=== PATIENT | female | born 1935 | race Caucasian/White ===

== ENCOUNTER → 2017-12-13 | Outpatient (CLI) | payer MEDICARE ==
[~2017-12-13] MED LIST: DENOSUMAB 60 MG/ML 1 ML SYRINGE SQ ONE
[2017-12-13 12:31] VITALS: BP 165/79; PULSE 68; RESP 18; TEMP 97.6
== END | disposition home or self-care (01) ==
LOC: PROCWHC3 12:07
PROVIDERS: ATTEND Family Medicine
DX: M81.0 Age-related osteoporosis without current pathological fracture (principal)
CPT/HCPCS: 96372; J0897

== ENCOUNTER 2018-01-15 13:41 | Emergency (ER) | payer MEDICARE ==
[2018-01-15] MEDS ORDERED: SODIUM CHLORIDE 0.9% 1,000 ML IV STA (14:30)
[2018-01-15] MEDS ORDERED: ONDANSETRON 4 MG/2 ML VIAL IVP STA (14:30)
--- NOTE | 2018-01-15 14:39 | ED ---
General Adult HPI - General Chief complaint: Nausea/Vomiting/Diarrhea Stated complaint: N/V Time Seen by Provider: 01/15/18 14:15 Source: EMS, RN notes reviewed Mode of arrival: EMS Limitations: no limitations - History of Present Illness Initial comments: Patient 82-year-old male presented to the emergency room today with multiple complaints. Patient does admit that she's had some left-sided hip pain over the last week to the last month. She states that she typically does not have to use a walker or cane. She states that when she tries to stand and bear weight and walk she has pain in the left hip. Denies any injury or trauma. Patient also admits that over the last 3 days she's had nausea vomiting. She states she has not been eating or drinking much as she is too afraid because she is worried that she may vomit. Patient denies any pain in the abdomen. Denies any chest pain or shortness breath. Patient denies any other complaints. Patient denies any back pain, diarrhea, numbness tingling, headache , visual changes. - Related Data Previous Rx's Medication Instructions Recorded Ondansetron Odt [Zofran ODT] 4 mg PO Q8HR PRN #10 tab 01/15/18 Allergies Allergy/AdvReac Type Severity Reaction Status Date / Time No Known Allergies Allergy Verified 01/15/18 13:49 Review of Systems ROS Statement: Those systems with pertinent positive or pertinent negative responses have been documented in the HPI. ROS Other: All systems not noted in ROS Statement are negative. Past Medical History Past Medical History: No Reported History History of Any Multi-Drug Resistant Organisms: None Reported Past Surgical History: Adenoidectomy, Appendectomy, Tonsillectomy Past Psychological History: No Psychological Hx Reported Smoking Status: Former smoker Past Alcohol Use History: Occasional Past Drug Use History: None Reported General Exam - General Exam Comments Initial Comments: General: The patient is awake and alert, in no distress, and does not appear acutely ill. Eye: Pupils are equal, round and reactive to light. Extra-ocular movements are intact. No nystagmus. There is normal conjunctiva bilaterally. No signs of icterus. Ears, nose, mouth and throat: There are moist mucous membranes and no oral lesions. Neck: The neck is supple, there is no tenderness or JVD. Cardiovascular: There is a regular rate and rhythm. No murmur, rub or gallop is appreciated. Respiratory: Lungs are clear to auscultation, respirations are non-labored, breath sounds are equal. No wheezes, stridor, rales, or rhonchi. Gastrointestinal: Soft, non-distended, non-tender abdomen without masses or organomegaly noted. There is no rebound or guarding present. No CVA tenderness. Musculoskeletal: Normal ROM. Patient does have some mild tenderness with a logroll maneuver on the left with mild tenderness to the internal aspect. Sensation intact. Strength 5/5. Pulses equal bilaterally 2+. Neurological: A&O x 3. CN II-XII intact, There are no obvious motor or sensory deficits. Coordination appears grossly intact. Speech is normal. Skin: Skin is warm and dry and no rashes or lesions are noted. Psychiatric: Cooperative, appropriate mood & affect, normal judgment. Limitations: no limitations Course Vital Signs 01/15/18 01/15/18 01/15/18 13:44 13:48 13:50 Temperature 99.0 F Pulse Rate 86 Respiratory 18 Rate Blood Pressure 162/83 162/83 O2 Sat by Pulse 93 L 92 L 94 L Oximetry 01/15/18 01/15/18 01/15/18 14:00 14:10 14:20 Temperature Pulse Rate Respiratory Rate Blood Pressure 162/83 160/71 160/71 O2 Sat by Pulse 90 L 95 95 Oximetry 01/15/18 01/15/18 01/15/18 14:30 14:40 14:50 Temperature Pulse Rate 84 Respiratory 18 Rate Blood Pressure 160/71 150/68 150/68 O2 Sat by Pulse 94 L 95 Oximetry 01/15/18 15:00 Temperature Pulse Rate 79 Respiratory 12 Rate Blood Pressure 150/68 O2 Sat by Pulse 92 L Oximetry EKG Findings - EKG Comments: EKG Findings:: EKG performed at 1447: Shows normal sinus rhythm at 83 bpm. GA 160. QRS 72. QT/QTC 378/444. No acute ST changes. Medical Decision Making - Medical Decision Making X-ray of the left hip and pelvis shows no acute fracture dislocation of the pelvis or hip. Moderate bilateral femoral acetabular arthropathy greater on the left than the right. Patient's labs been reviewed. White count 10.9. Abdomen soft on palpation. Urinalysis reviewed and shows contaminated specimen. Patient denies any symptoms of dysuria or increased voiding. Abdomen soft nontender. X-ray reviewed and shows no evidence for obstruction. Patient will be discharged home with nausea medication. She is advised follow- up family doctor she has appointment tomorrow. Patient is advised follow-up with orthopedics for her hip pain. Advised to return here to the emergency room if any symptoms increase worsen. - Lab Data Result diagrams: 01/15/18 13:53 01/15/18 13:53 Lab Results 01/15/18 01/15/18 01/15/18 Range/Units 13:53 13:53 13:53 WBC 10.9 H (3.8-10.6) k/uL RBC 4.31 (3.80-5.40) m/uL Hgb 13.7 (11.4-16.0) gm/dL Hct 40.1 (34.0-46.0) % MCV 93.2 (80.0-100.0) fL MCH 31.8 (25.0-35.0) pg MCHC 34.1 (31.0-37.0) g/dL RDW 13.4 (11.5-15.5) % Plt Count 248 (150-450) k/uL Neutrophils % 90 % Lymphocytes % 4 % Monocytes % 3 % Eosinophils % 2 % Basophils % 0 % Neutrophils # 9.8 H (1.3-7.7) k/uL Lymphocytes # 0.4 L (1.0-4.8) k/uL Monocytes # 0.3 (0-1.0) k/uL Eosinophils # 0.3 (0-0.7) k/uL Basophils # 0.0 (0-0.2) k/uL PT (9.0-12.0) sec INR (<1.2) APTT (22.0-30.0) sec Sodium 138 (137-145) mmol/L Potassium 4.0 (3.5-5.1) mmol/L Chloride 107 (98-107) mmol/L Carbon Dioxide 22 (22-30) mmol/L Anion Gap 9 mmol/L BUN 16 (7-17) mg/dL Creatinine 0.52 (0.52-1.04) mg/dL Est GFR (CKD-EPI)AfAm >90 (>60 ml/min/1.73 sqM) Est GFR (CKD-EPI)NonAf 89 (>60 ml/min/1.73 sqM) Glucose 134 H (74-99) mg/dL Calcium 8.2 L (8.4-10.2) mg/dL Total Bilirubin 0.4 (0.2-1.3) mg/dL AST 27 (14-36) U/L ALT 34 (9-52) U/L Alkaline Phosphatase 40 (38-126) U/L Total Creatine Kinase 31 (30-135) U/L CK-MB (CK-2) <0.2 (0.0-2.4) ng/mL CK-MB (CK-2) Rel Index Troponin I <0.012 (0.000-0.034) ng/mL Total Protein 6.2 L (6.3-8.2) g/dL Albumin 3.5 (3.5-5.0) g/dL Amylase 47 (30-110) U/L Lipase 71 (23-300) U/L Urine Color Urine Appearance (Clear) Urine pH (5.0-8.0) Ur Specific [place] (1.001-1.035) Urine Protein (Negative) Urine Glucose (UA) (Negative) Urine Ketones (Negative) Urine Blood (Negative) Urine Nitrite (Negative) Urine Bilirubin (Negative) Urine Urobilinogen (<2.0) mg/dL Ur Leukocyte Esterase (Negative) Urine RBC (0-5) /hpf Urine WBC (0-5) /hpf Ur Squamous Epith Cells (0-4) /hpf Urine Bacteria (None) /hpf Urine Mucus (None) /hpf 01/15/18 01/15/18 Range/Units 13:53 15:30 WBC (3.8-10.6) k/uL RBC (3.80-5.40) m/uL Hgb (11.4-16.0) gm/dL Hct (34.0-46.0) % MCV (80.0-100.0) fL MCH (25.0-35.0) pg MCHC (31.0-37.0) g/dL RDW (11.5-15.5) % Plt Count (150-450) k/uL Neutrophils % % Lymphocytes % % Monocytes % % Eosinophils % % Basophils % % Neutrophils # (1.3-7.7) k/uL Lymphocytes # (1.0-4.8) k/uL Monocytes # (0-1.0) k/uL Eosinophils # (0-0.7) k/uL Basophils # (0-0.2) k/uL PT 10.1 (9.0-12.0) sec INR 1.0 (<1.2) APTT 24.4 (22.0-30.0) sec Sodium (137-145) mmol/L Potassium (3.5-5.1) mmol/L Chloride (98-107) mmol/L Carbon Dioxide (22-30) mmol/L Anion Gap mmol/L BUN (7-17) mg/dL Creatinine (0.52-1.04) mg/dL Est GFR (CKD-EPI)AfAm (>60 ml/min/1.73 sqM) Est GFR (CKD-EPI)NonAf (>60 ml/min/1.73 sqM) Glucose (74-99) mg/dL Calcium (8.4-10.2) mg/dL Total Bilirubin (0.2-1.3) mg/dL AST (14-36) U/L ALT (9-52) U/L Alkaline Phosphatase (38-126) U/L Total Creatine Kinase (30-135) U/L CK-MB (CK-2) (0.0-2.4) ng/mL CK-MB (CK-2) Rel Index Troponin I (0.000-0.034) ng/mL Total Protein (6.3-8.2) g/dL Albumin (3.5-5.0) g/dL Amylase (30-110) U/L Lipase (23-300) U/L Urine Color Yellow Urine Appearance Turbid H (Clear) Urine pH 6.0 (5.0-8.0) Ur Specific [place] 1.019 (1.001-1.035) Urine Protein 1+ H (Negative) Urine Glucose (UA) Negative (Negative) Urine Ketones 1+ H (Negative) Urine Blood Trace H (Negative) Urine Nitrite Negative (Negative) Urine Bilirubin Negative (Negative) Urine Urobilinogen 3.0 (<2.0) mg/dL Ur Leukocyte Esterase Moderate H (Negative) Urine RBC 11 H (0-5) /hpf Urine WBC 16 H (0-5) /hpf Ur Squamous Epith Cells 50 H (0-4) /hpf Urine Bacteria Few H (None) /hpf Urine Mucus Rare H (None) /hpf Disposition Clinical Impression: Nausea & vomiting, Hip pain Disposition: HOME SELF-CARE Condition: Good Instructions: Acute Nausea and Vomiting (ED) Additional Instructions: Please follow-up the orthopedic doctor in family doctor as discussed. Please continue to emergency room sent symptoms increase or worsen or for any other concerns. Prescriptions: Ondansetron Odt [Zofran ODT] 4 mg PO Q8HR PRN #10 tab PRN Reason: Nausea Is patient prescribed a controlled substance at d/c from ED?: No Referrals: Lonnie Wilburn MD [Primary Care Provider] - 1-2 days Time of Disposition: 16:15
[2018-01-15 14:48] LABS: Basophils % (A) 0 %; Eosinophils # (A) 0.3 k/uL (0-0.7); Eosinophils % (A) 2 %; HCT 40.1 % (34.0-46.0); HGB 13.7 gm/dL (11.4-16.0); Lymphocytes # (A) 0.4 k/uL (1.0-4.8); Lymphocytes % (A) 4 %; MCH 31.8 pg (25.0-35.0); MCHC 34.1 g/dL (31.0-37.0); MCV 93.2 fL (80.0-100.0); Mean Platelet Volume 6.8; Monocytes # (A) 0.3 k/uL (0-1.0); Monocytes % (A) 3 %; Neutrophils # (A) 9.8 k/uL (1.3-7.7); Neutrophils % (A) 90 %; Platelet Count 248 k/uL (150-450); RBC 4.31 m/uL (3.80-5.40); RDW 13.4 % (11.5-15.5); WBC 10.9 k/uL (3.8-10.6)
[2018-01-15 14:58] LABS: Partial Thromboplastin Time 24.4 sec (22.0-30.0); Prothrombin Time 10.1 sec (9.0-12.0)
[2018-01-15 15:03] LABS: ALT 34 U/L (9-52); AST 27 U/L (14-36); Albumin 3.5 g/dL (3.5-5.0); Alkaline Phosphatase 40 U/L (38-126); Amylase 47 U/L (30-110); Anion Gap 9 mmol/L; Blood Urea Nitrogen 16 mg/dL (7-17); Calcium 8.2 mg/dL (8.4-10.2); Carbon Dioxide 22 mmol/L (22-30); Chloride 107 mmol/L (98-107); Glucose 134 mg/dL (74-99); Lipase 71 U/L (23-300); Sodium 138 mmol/L (137-145); Total Bilirubin 0.4 mg/dL (0.2-1.3); Total Protein 6.2 g/dL (6.3-8.2)
[2018-01-15 15:08] LABS: Creatine Kinase 31 U/L (30-135)
[2018-01-15 15:21] LABS: Creatine Kinase MB <0.2 ng/mL (0.0-2.4); Troponin I <0.012 ng/mL (0.000-0.034)
--- NOTE | 2018-01-15 15:38 | XR ---
EXAMINATION TYPE: XR Hip LT and AP Pelvis DATE OF EXAM: 01/15/2018 COMPARISON: NONE HISTORY: Chronic left hip pain. Patient denies 3 TECHNIQUE: A single AP view of the pelvis is obtained. Two views of the left hip are obtained. FINDINGS: There is no acute fracture/dislocation evident in the pelvis. The hip and sacroiliac join ts demonstrate moderate femoral acetabular arthropathy demonstrated as acetabular roof sclerosis, sma ll marginal osteophytes and joint space narrowing. Left degenerative changes are slightly greater joni n right. The overlying soft tissue appears unremarkable. Two views of left hip show no acute fracture or dislocation. No focal lytic or sclerotic lesion seen in the proximal left femur. The overlying soft tissue is unremarkable. IMPRESSION: There is no acute fracture or dislocation in the pelvis or left hip. Moderate bilateral femoral acetabular arthropathy, left greater than right.
--- NOTE | 2018-01-15 15:39 | XR ---
EXAMINATION TYPE: XR KUB DATE OF EXAM: 01/15/2018 3:21 PM CLINICAL HISTORY: Abdominal pain with nausea and vomiting. TECHNIQUE: Single supine KUB image of the abdomen is obtained. COMPARISON: None. FINDINGS: Shana loops of small bowel are seen centralized within the abdomen. Scattered gas is seen in nondilated small bowel loops. Gas and fecal material is seen in nondilated colon. There is no visc eromegaly, pneumoperitoneum, or abnormal calcification appreciated. The lung bases demonstrate left b asilar atelectasis. Atherosclerosis of the abdominal aorta and slight levoscoliotic curvature of the lumbar spine are noted. IMPRESSION: Few nondilated loops of small bowel are clustered within the mid abdomen. No dilated anmol l to suggest obstruction. Small bowel ileus is suspected. Moderate amount retained stool within the d escending colon.
[2018-01-15 15:52] LABS: Appearance,Urine Turbid (Clear); Bacteria,Urine Few /hpf; Bilirubin,Urine Negative (Negative); Blood,Urine Trace (Negative); Color,Urine Yellow; Glucose,Urine (UA) Negative (Negative); Ketones,Urine 1+ (Negative); Leukocyte Esterase,Urine Moderate (Negative); Mucus,Urine Rare /hpf; Nitrite,Urine Negative (Negative); Protein,Urine 1+ (Negative); RBC,Urine 11 /hpf (0-5); Specific Gravity,Urine 1.019 (1.001-1.035); Squamous Epithelial Cell,Urine 50 /hpf (0-4)
[2018-01-15 16:40] VITALS: BP 134/87; PULSE 87; RESP 18; TEMP 98.7
== END 2018-01-15 16:40 | disposition home or self-care (01) ==
LOC: EC 13:41
DX: M16.0 Bilateral primary osteoarthritis of hip (principal); R11.2 Nausea with vomiting, unspecified; R19.7 Diarrhea, unspecified; Z87.891 Personal history of nicotine dependence
CPT/HCPCS: 36415; 93005; 80053; 82150; 82550; 82553; 83690; 84484; 85025; 85610; 85730; 81001; 87086; 73502; 74018; 99285; 96374; 96361 ×2; J2405

== ENCOUNTER → 2018-06-14 | Outpatient (CLI) | payer MEDICARE ==
[2018-06-14 10:58] VITALS: BP 134/62; PULSE 73; RESP 16; TEMP 97.5
== END ==
LOC: PROCWHC3 10:33
PROVIDERS: ATTEND Family Medicine
DX: M81.0 Age-related osteoporosis without current pathological fracture (principal)
CPT/HCPCS: 96372; J0897

== ENCOUNTER → 2018-09-19 | Outpatient (CLI) | payer MEDICARE ==
--- NOTE | 2018-09-19 13:33 | CT ---
EXAMINATION TYPE: CT sinus wo con DATE OF EXAM: 09/19/2018 COMPARISON: MR internal auditory canals 08/15/2018 HISTORY: Chronic sinusitis, J 32.9, BILATERAL HEARING LOSS CT DLP: 649.2 mGycm. Automated Exposure Control for Dose Reduction was Utilized. TECHNIQUE: CT scan of the sinuses is performed without contrast, axial images are obtained, coronal r eformatted images are also reviewed. FINDINGS: There is inflammatory change involving the sphenoid sinus on the left as noted on prior MRI , minimal inflammatory change in the right sphenoid sinus. Left sphenoid sinus shows some associated higher attenuation within the inflammatory change. The paranasal sinuses including the frontal, ethm oid, and maxillary sinuses bilaterally are well-aerated without abnormal opacification. The ostiomea annie complex is patent bilaterally on the coronal images. Visualized portion of mastoid air cells show no abnormal opacification. The globes are intact bilate rally. IMPRESSION: Sinus disease in the sphenoid sinus associated with calcification
== END | disposition home or self-care (01) ==
LOC: RADCTMAIN 12:12
PROVIDERS: ATTEND Otolaryngology
DX: J32.3 Chronic sphenoidal sinusitis (principal)
CPT/HCPCS: 70486

== ENCOUNTER 2020-05-14 08:15 | Observation (INO) | payer MEDICARE ==
[2020-05-14] MEDS ORDERED: MECLIZINE 25 MG TAB PO STA (08:32)
[2020-05-14] MEDS ORDERED: ONDANSETRON 4 MG/2 ML VIAL IVP STA (08:32)
[2020-05-14 08:58] LABS: Basophils % (A) 0 %; Eosinophils # (A) 0.1 k/uL (0-0.7); Eosinophils % (A) 1 %; HCT 43.8 % (34.0-46.0); HGB 14.6 gm/dL (11.4-16.0); Lymphocytes # (A) 1.6 k/uL (1.0-4.8); Lymphocytes % (A) 16 %; MCH 31.4 pg (25.0-35.0); MCHC 33.3 g/dL (31.0-37.0); MCV 94.4 fL (80.0-100.0); Mean Platelet Volume 6.9; Monocytes # (A) 0.5 k/uL (0-1.0); Monocytes % (A) 4 %; Neutrophils # (A) 8.1 k/uL (1.3-7.7); Neutrophils % (A) 78 %; Platelet Count 320 k/uL (150-450); RBC 4.65 m/uL (3.80-5.40); RDW 13.3 % (11.5-15.5); WBC 10.4 k/uL (3.8-10.6)
--- NOTE | 2020-05-14 09:06 | ED ---
General Adult HPI - General Chief complaint: Nausea/Vomiting/Diarrhea Stated complaint: dizziness/nausea Time Seen by Provider: 05/14/20 08:25 Source: patient, EMS, RN notes reviewed, old records reviewed Mode of arrival: EMS Limitations: no limitations - History of Present Illness Initial comments: This is an 84-year-old female who states she got before clots morning with the bathroom and when she went back in bed and lay down and everything became really spinning and she became extremely nauseous. Patient states the nausea continues and anytime she moves the spinning is comes back. Patient denies headache. Patient denies any numbness weakness. Patient denies any chest pain palpitations difficulty breathing shortness of breath. Patient denies any history of similar. Patient states she's normally deaf but has not noticed any worsening in her hearing. Patient denies any tinnitus. Patient denies abdominal pain patient denies any - Related Data Home Medications Medication Instructions Recorded Confirmed Dorzolamide-Timol 2.23%/0.68% 1 drop BOTH EYES BID 05/14/20 05/14/20 [Cosopt] Allergies Allergy/AdvReac Type Severity Reaction Status Date / Time Sulfa (Sulfonamide Allergy Unknown Verified 05/14/20 10:25 Antibiotics) Review of Systems ROS Statement: Those systems with pertinent positive or pertinent negative responses have been documented in the HPI. ROS Other: All systems not noted in ROS Statement are negative. Past Medical History Past Medical History: Hyperlipidemia Additional Past Medical History / Comment(s): GLAUCOMA. OSTEOPOROSIS. History of Any Multi-Drug Resistant Organisms: None Reported Past Surgical History: Adenoidectomy, Appendectomy, Tonsillectomy Past Psychological History: No Psychological Hx Reported Smoking Status: Never smoker Past Alcohol Use History: Occasional Past Drug Use History: None Reported - Past Family History Father Family Medical History: No Reported History Mother Family Medical History: Cancer Sister(s) Family Medical History: Asthma General Exam - General Exam Comments Initial Comments: GENERAL: Patient is well-developed and well-nourished. Patient is nontoxic and well- hydrated and is in mild distress. ENT: Neck is soft and supple. No significant lymphadenopathy is noted. Oropharynx is clear. Moist mucous membranes. Neck has full range of motion without eliciting any pain. EYES: The sclera were anicteric and conjunctiva were pink and moist. Extraocular movements were intact and pupils were equal round and reactive to light. Eyelids were unremarkable. PULMONARY: Unlabored respirations. Good breath sounds bilaterally. No audible rales rhonchi or wheezing was noted. CARDIOVASCULAR: There is a regular rate and rhythm without any murmurs gallops or rubs. ABDOMEN: Soft and nontender with normal bowel sounds. SKIN: Skin is clear with no lesions or rashes and otherwise unremarkable. NEUROLOGIC: Patient is alert and oriented x3. Cranial nerves II through XII are grossly intact. Motor and sensory are also intact. Normal speech, volume and content. Symmetrical smile. Finger to nose cerebellar testing is normal bilaterally MUSCULOSKELETAL: Normal extremities with adequate strength and full range of motion. No lower extremity swelling or edema. No calf tenderness. LYMPHATICS: No significant lymphadenopathy is noted PSYCHIATRIC: Normal psychiatric evaluation. Limitations: no limitations Course Vital Signs 05/14/20 08:23 Temperature 98.0 F Pulse Rate 64 Respiratory 18 Rate Blood Pressure 165/77 O2 Sat by Pulse 98 Oximetry Medical Decision Making - Medical Decision Making EKG shows normal sinus rhythm at 64 bpm [place] interval 162 QRS is 80 QT interval is 460 QTC is 474 patient has T-wave inversions in V1 and V2 and V3. These inversions were seen on her previous EKG. Computed tomography scan showed no acute abnormality. I went back in the room after patient received Valium and Antivert patient was unable to sit up in bed without becoming very dizzy and nauseated. Patient did not think she could go home alone because she lives alone. I spoke with Dr. Brumfield agreed to admit the patient admitted the patient I consult the neurology. - Lab Data Result diagrams: 05/14/20 08:46 05/14/20 08:46 Lab Results 05/14/20 05/14/20 05/14/20 Range/Units 08:46 08:46 08:46 WBC 10.4 (3.8-10.6) k/uL RBC 4.65 (3.80-5.40) m/uL Hgb 14.6 (11.4-16.0) gm/dL Hct 43.8 (34.0-46.0) % MCV 94.4 (80.0-100.0) fL MCH 31.4 (25.0-35.0) pg MCHC 33.3 (31.0-37.0) g/dL RDW 13.3 (11.5-15.5) % Plt Count 320 (150-450) k/uL MPV 6.9 Neutrophils % 78 % Lymphocytes % 16 % Monocytes % 4 % Eosinophils % 1 % Basophils % 0 % Neutrophils # 8.1 H (1.3-7.7) k/uL Lymphocytes # 1.6 (1.0-4.8) k/uL Monocytes # 0.5 (0-1.0) k/uL Eosinophils # 0.1 (0-0.7) k/uL Basophils # 0.0 (0-0.2) k/uL PT 9.8 (9.0-12.0) sec INR 0.9 (<1.2) APTT 22.0 (22.0-30.0) sec Sodium 137 (137-145) mmol/L Potassium 3.8 (3.5-5.1) mmol/L Chloride 107 (98-107) mmol/L Carbon Dioxide 23 (22-30) mmol/L Anion Gap 7 mmol/L BUN 14 (7-17) mg/dL Creatinine 0.57 (0.52-1.04) mg/dL Est GFR (CKD-EPI)AfAm >90 (>60 ml/min/1.73 sqM) Est GFR (CKD-EPI)NonAf 86 (>60 ml/min/1.73 sqM) Glucose 116 H (74-99) mg/dL Calcium 8.9 (8.4-10.2) mg/dL Magnesium 1.9 (1.6-2.3) mg/dL Total Bilirubin 0.7 (0.2-1.3) mg/dL AST 22 (14-36) U/L ALT 10 (4-34) U/L Alkaline Phosphatase 58 (38-126) U/L Troponin I (0.000-0.034) ng/mL Total Protein 6.3 (6.3-8.2) g/dL Albumin 3.6 (3.5-5.0) g/dL 05/14/20 Range/Units 08:46 WBC (3.8-10.6) k/uL RBC (3.80-5.40) m/uL Hgb (11.4-16.0) gm/dL Hct (34.0-46.0) % MCV (80.0-100.0) fL MCH (25.0-35.0) pg MCHC (31.0-37.0) g/dL RDW (11.5-15.5) % Plt Count (150-450) k/uL MPV Neutrophils % % Lymphocytes % % Monocytes % % Eosinophils % % Basophils % % Neutrophils # (1.3-7.7) k/uL Lymphocytes # (1.0-4.8) k/uL Monocytes # (0-1.0) k/uL Eosinophils # (0-0.7) k/uL Basophils # (0-0.2) k/uL PT (9.0-12.0) sec INR (<1.2) APTT (22.0-30.0) sec Sodium (137-145) mmol/L Potassium (3.5-5.1) mmol/L Chloride (98-107) mmol/L Carbon Dioxide (22-30) mmol/L Anion Gap mmol/L BUN (7-17) mg/dL Creatinine (0.52-1.04) mg/dL Est GFR (CKD-EPI)AfAm (>60 ml/min/1.73 sqM) Est GFR (CKD-EPI)NonAf (>60 ml/min/1.73 sqM) Glucose (74-99) mg/dL Calcium (8.4-10.2) mg/dL Magnesium (1.6-2.3) mg/dL Total Bilirubin (0.2-1.3) mg/dL AST (14-36) U/L ALT (4-34) U/L Alkaline Phosphatase (38-126) U/L Troponin I <0.012 (0.000-0.034) ng/mL Total Protein (6.3-8.2) g/dL Albumin (3.5-5.0) g/dL Disposition Clinical Impression: Vertigo Disposition: ADMITTED IP TO THIS HOSP Referrals: Renaldo Isabel MD [Primary Care Provider] - 1-2 days Time of Disposition: 12:06
[2020-05-14 09:10] LABS: ALT 10 U/L (4-34); AST 22 U/L (14-36); African American GFR (CKD) >90 (>60 ml/min/1.73 sqM); Albumin 3.6 g/dL (3.5-5.0); Alkaline Phosphatase 58 U/L (38-126); Anion Gap 7 mmol/L; Blood Urea Nitrogen 14 mg/dL (7-17); Calcium 8.9 mg/dL (8.4-10.2); Carbon Dioxide 23 mmol/L (22-30); Chloride 107 mmol/L (98-107); Glucose 116 mg/dL (74-99); Magnesium 1.9 mg/dL (1.6-2.3); Non-African American GFR(CKD) 86 (>60 ml/min/1.73 sqM); Potassium 3.8 mmol/L (3.5-5.1); Sodium 137 mmol/L (137-145); Total Bilirubin 0.7 mg/dL (0.2-1.3); Total Protein 6.3 g/dL (6.3-8.2)
[2020-05-14 09:25] LABS: INR 0.9 (<1.2); Prothrombin Time 9.8 sec (9.0-12.0)
--- NOTE | 2020-05-14 09:37 | CT ---
EXAMINATION TYPE: CT brain wo con DATE OF EXAM: 05/14/2020 COMPARISON: None HISTORY: vertigo CT DLP: 1145.[address] of the brain was performed. The ventricles, basal cisterns and sulci overlying the cerebral convexities demonstrate moderate enla rgement. Correlate for normal pressure hydrocephalus. Remote insult left frontal lobe and right poste rior parietal lobe. There is no evidence for intracranial hemorrhage or sulcal effacement. There is decreased attenuation about the periventricular white matter and deep white matter of both c erebral hemispheres, compatible with chronic small vessel ischemia. Differential diagnosis does inclu de demyelination. No mass effects are seen.No midline shift. Osseous calvarium is intact. Sphenoid sinusitis. If symptoms persist consider MRI. IMPRESSION: 1. Age related atrophic and chronic small vessel ischemic change without acute intracranial process s een at this time. 2. Correlate for normal pressure hydrocephalus.
[2020-05-14] MEDS ORDERED: DIAZEPAM 5 MG/ML 2 ML INJ IVP STA (10:08)
[2020-05-14] MEDS ORDERED: SODIUM CHLORIDE 0.9% 1,000 ML IV ONE (12:06)
[2020-05-14] MEDS ORDERED: MECLIZINE 25 MG TAB PO PRN (12:07)
[2020-05-14] MEDS ORDERED: ONDANSETRON 4 MG/2 ML VIAL IVP PRN (12:08)
[2020-05-14] MEDS: MECLIZINE 25 MG TAB PO SCH ×2 (16:37→21:31)
--- NOTE | 2020-05-14 17:28 | P.CNNES ---
History of Present Illness Consult date: 05/14/20 Requesting physician: Desmond Muñiz Reason for Consult: Vertigo History of Present Illness: Patient is a 84-year-old female came to the hospital this morning at 8:15 AM by ambulance for acute onset of vertigo. Patient states that she woke up at 4 AM to pass urine. She got up, went to the bathroom. She thinks when she came back and laid down, she felt dizzy. It was more like vertigo, with no nausea or vomiting. She managed to go back to sleep. She woke up again at 6 AM, and tried to get up and again felt vertigo. She was afraid to get out of bed, as she was concerned will fall. As she lives by herself, she called the EMS and was brought to the hospital. She denies any focal symptoms. Vital signs on arrival blood pressure 165/77, pulse rate 64, temperature 98.0. Blood test shows normal CBC, PT/PTT, Chem-20. Troponin negative, arreola virus negative. Patient underwent computed tomography scan of the head which revealed age-related atrophic and chronic small vessel ischemic changes without acute intracranial process seen at this time. Correlate for normal pressure hydrocephalus. EKG shows normal sinus rhythm. Patient has a previous computed tomography scan of the sinuses on 09/19/2018 which revealed sinus disease in the sphenoid sinus associated with calcification. Patient had a previous MRI of the brain as well on 08/15/2018, which revealed ventricular prominence may related to normal pressure hydrocephalus or age-related volume loss however no priors are available for comparison of stability in size of the ventriculomegaly. Apparently patient does not know anything about this previous MRI and possibility of NPH. Patient states that she smoked half pack per day for 20 years, quit 40 years ago. She drinks 1-2 cocktails of We[employer] for the last 50 years. Patient states that her son told her that she had an episode of vertigo 2-1/2 years ago as well, although she does not remember. Denies any history of strokes TIA. Patient denies tinnitus. She does have hearing loss and uses hearing aids. Denies any pressure or pain in the ears. Denies any sinus congestion, recent cold or upper respiratory infection or flu like illness. She had undergone Covid 19 vaccination from [employer], second dose on 03/27/2020. Patient lives alone. Her 3 years ago. Patient states that she does have slight balance issues but attributes to her age. She does not use any cane or a walker. She admits to having slight leaking of urine sometimes. At present she is feeling fine when she is laying in the bed. However when she tries to get up, she gets dizziness. Review of Systems As mentioned in HPI in detail. All other review of systems unremarkable. Denies any chest pain shortness of breath wheezing or cough. Denies double vision. Past Medical History Past Medical History: Hyperlipidemia Additional Past Medical History / Comment(s): GLAUCOMA. OSTEOPOROSIS. History of Any Multi-Drug Resistant Organisms: None Reported Past Surgical History: Adenoidectomy, Appendectomy, Tonsillectomy Past Psychological History: No Psychological Hx Reported Smoking Status: Never smoker Past Alcohol Use History: Occasional Past Drug Use History: None Reported - Past Family History Father Family Medical History: No Reported History Mother Family Medical History: Cancer Sister(s) Family Medical History: Asthma Medications and Allergies Home Medications Medication Instructions Recorded Confirmed Type Dorzolamide-Timol 2.23%/0.68% 1 drop BOTH EYES BID 05/14/20 05/14/20 History [Cosopt] Lisinopril-Hctz 10-12.5 mg 1 each PO HS #30 tab 05/15/20 Rx [Zestoretic 10-12.5] Meclizine [Antivert] 25 mg PO TID PRN #20 tab 05/15/20 Rx Allergies Allergy/AdvReac Type Severity Reaction Status Date / Time Sulfa (Sulfonamide Allergy Unknown Verified 05/14/20 10:25 Antibiotics) Physical Examination - Vital Signs Vital Signs: Vital Signs Temp Pulse Resp BP Pulse Ox 05/14/20 12:00 98.0 F 66 18 152/70 98 05/14/20 08:23 98.0 F 64 18 165/77 98 Intake and Output 05/13/20 05/14/20 05/14/20 22:59 06:59 14:59 Other: Weight 63.503 kg On examination patient is an elderly female, very pleasant, in no acute distress. Patient is alert awake oriented to time place and person. Speech and language functions are normal. Attention, concentration and fund of knowledge adequate. On cranial nerve exam showed pupils are round and reactive to light, visual soares are full on confrontation, extraocular muscles are intact with no nystagmus. Face is symmetric, tongue protrudes to the midline, palatal elevation and sensation normal, hearing is decreased and uses hearing aids and shoulder shrug normal. Facial sensation normal. On muscle strength testing there is no pronator drift and the strength is normal in arms and legs distally and proximally reflexes are 1+ to 2+ and plantars are withdrawal. Sensory to touch is equal. No ataxia for [id number] testing, tone and bulk of muscles normal. Gait deferred. On general examination there is no carotid bruit or murmur, peripheral pulses present. Abdomen soft nontender, chest is clear. Results - Laboratory Findings CBC and BMP: 05/14/20 08:46 05/14/20 08:46 Abnormal Lab Findings: Abnormal Labs 05/14/20 05/14/20 08:46 08:46 Neutrophils # 8.1 H Glucose 116 H Assessment and Plan Assessment: * Vertigo, likely due to peripheral vestibular dysfunction, possible labyrinthitis. Patient does have chronic hearing loss and uses hearing aids. Computed tomography scan of the head showed evidence of near complete opacification of the left sphenoid sinus, probably suggesting acute sinusitis. Patient however denies any sinus congestion. This sphenoid sinus polyp was present in the previous MRI and computed tomography scan as well from 2019, b ut now seems to have gotten worse on the current imaging. * Hydrocephalus noted on computed tomography scan, probably chronic. Patient has similar appearance of possible NPH as per MRI from 08/15/2018. Patient is not aware of any previous discussion about NPH in the past. Patient denies any significant problem with balance or memory problems. She does have mild urinary incontinence. I informed patient of typical symptoms of NPH, and if those symptoms start appearing, then she should follow-up with the neurosurgeon to consider for VPS. Plan: * Continue meclizine. Consider course of antibiotics for acute on chronic left sphenoid sinusitis. May consider ENT consult. * We will check B12, folate level.
[2020-05-14] MEDS ORDERED: ENOXAPARIN 40 MG/0.4 ML SYRINGE SQ SCH (21:45)
--- NOTE | 2020-05-14 21:49 | P.HPIM ---
History of Present Illness H&P Date: 05/14/20 Chief Complaint: Room spinning History of presenting complaint: This is a very pleasant 84-year-old patient who follows with Dr. Garner. Patient's chronic stable medical conditions include hyperlipidemia, glaucoma, osteoporosis and ostial arthritis. His morning she got out of bed and while doing that she room started spinning severely. She had to hold onto things. She remains very dizzy since then. It is very positional only when she moves not otherwise. Denies any headache. No change in speech no focal weakness. Patient is hard of hearing and is very hearing aids. Patient is given Antivert in the ER. Patient states that she's had this before Review of systems: GEN.: None EYES: None HEENT: Hard of hearing NECK: None RESPIRATORY: None CARDIOVASCULAR: None GASTROINTESTINAL: None GENITOURINARY: None MUSCULOSKELETAL: None LYMPHATICS: None HEMATOLOGICAL: None PSYCHIATRY: None NEUROLOGICAL: [As above Past medical history to include: Hyperlipidemia, glaucoma, osteoporosis Social history: Patient is a . Patient smoked for 24 years stopped in 1980. Alcohol occasionally. Physical examination: VITAL SIGNS: 97.4, 78, 15, 158/73, 95% on room air GENERAL: BMI 22.6, laying in bed, comfortable. EYES: Pupils equal. Conjunctiva normal. HEENT: External appearance of nose and ears normal, oral cavity grossly normal. NECK: JVD not raised; masses not palpable. HEART: First and second heart sounds are normal; no edema. LUNGS: Respiratory rate normal; clear to auscultation. ABDOMEN: Soft, nontender, liver spleen not palpable, no masses palpable. PSYCH: Alert and oriented x3; mood and affect normal. MUSCULAR skeletal: Evidence of OA especially in the hands NEUROLOGICAL: Cranial nerves grossly intact; no facial asymmetry, power and se nsation grossly intact no nystagmus. LYMPHATICS: No lymph nodes palpable in the axilla and neck INVESTIGATIONS, reviewed in the clinical context: WBC 10.4 hemoglobin 14.6 platelets 320 potassium 3.8 creatinine 0.57 Coronavirus [PCR] not detected EKG tracing personally reviewed by me-normal sinus rhythm some T-wave changes in anterior leads Computed tomography scan of the brain without contrast: Chronic changes. Some suggestion for multiple pressure hydrocephalus. Remote insult left frontal lobe and right posterior parietal lobe. Assessment and plan: -This patient woke up this morning when running out of bed suddenly became extremely dizzy. Patient continues to have the symptom only when she moves not given at rest. Patient's had this before. Symptoms are compatible with benign paroxysmal positional vertigo. To rule out a central cause neurology was consulted. We will give instructions to patient with Krystyna maneuver. This can be done at home also. -Primary osteoarthritis. Symptoms well controlled -Hyperlipidemia, diet controlled -Glaucoma continue with eyedrops -Essential hypertension, new diagnosis. Start the patient on lisinopril hydrochlorothiazide 10/12.5 daily at bedtime Care was discussed with the patient. Also put on Antivert. Neurology was consulted. Hopefully patient feel better with Krystyna maneuver. Should be able to be discharged home tomorrow Past Medical History Past Medical History: Hyperlipidemia Additional Past Medical History / Comment(s): GLAUCOMA. OSTEOPOROSIS. History of Any Multi-Drug Resistant Organisms: None Reported Past Surgical History: Adenoidectomy, Appendectomy, Tonsillectomy Additional Past Surgical History / Comment(s): Colonoscopy Past Anesthesia/Blood Transfusion Reactions: No Reported Reaction Past Psychological History: No Psychological Hx Reported Smoking Status: Never smoker Past Alcohol Use History: Occasional Past Drug Use History: None Reported - Past Family History Father Family Medical History: No Reported History Additional Family Medical History / Comment(s): Father was healthy and at age 83 yrs, he was a pedestrian hit be a car. Mother Family Medical History: Cancer Additional Family Medical History / Comment(s): Mother passed from uterine cancer at the age of 60 yrs. Sister(s) Family Medical History: Asthma Medications and Allergies Home Medications Medication Instructions Recorded Confirmed Type Dorzolamide-Timol 2.23%/0.68% 1 drop BOTH EYES BID 05/14/20 05/14/20 History [Cosopt] Allergies Allergy/AdvReac Type Severity Reaction Status Date / Time Sulfa (Sulfonamide Allergy Unknown Verified 05/14/20 10:25 Antibiotics) Physical Exam Vitals: Vital Signs Temp Pulse Pulse Resp BP BP Pulse Ox 05/14/20 19:55 97.6 F 76 14 175/77 96 05/14/20 15:54 16 05/14/20 15:00 97.4 F L 78 15 158/73 95 05/14/20 14:00 16 05/14/20 12:00 98.0 F 66 18 152/70 98 05/14/20 08:23 98.0 F 64 18 165/77 98 Intake and Output 05/14/20 05/14/20 05/14/20 06:59 14:59 22:59 Other: # Voids 1 1 Weight 63.503 kg 63.503 kg Results CBC & Chem 7: 05/14/20 08:46 05/14/20 08:46 Labs: Abnormal Lab Results - Last 24 Hours (Table) 05/14/20 05/14/20 Range/Units 08:46 08:46 Neutrophils # 8.1 H (1.3-7.7) k/uL Glucose 116 H (74-99) mg/dL Thrombosis Risk Factor Assmnt - Choose All That Apply Any of the Below Risk Factors Present?: Yes Other Risk Factors: Yes Each Risk Factor Represents 3 Points: Age 75 years or older Other congenital or acquired thrombophilia - If yes, enter type in comment: No Thrombosis Risk Factor Assessment Total Risk Factor Score: 3 Thrombosis Risk Factor Assessment Level: Moderate Risk
[2020-05-14] MEDS ORDERED: LISINOPRIL-HCTZ 10-12.5 MG 1 EACH TAB PO SCH (22:00)
[2020-05-15] MEDS ORDERED: ACETAMINOPHEN TAB 325 MG TAB PO STA (03:54)
[2020-05-15 07:51] VITALS: BP 136/64; PULSE 66; RESP 15; TEMP 97.2
[2020-05-15] MEDS: MECLIZINE 25 MG TAB PO SCH (08:34)
[2020-05-15 12:24] LABS: Folate, Serum >24.0 ng/mL
--- NOTE | 2020-05-15 13:55 | P.PN ---
Subjective Progress Note Date: 05/15/20 Patient was seen for a follow-up. Patient's son was also present today. Patient states that she felt dizzy when she just got up from the bed but it went away. She was able to walk with her walker, back to her baseline. Patient's son mentioned that she was seen in the ER couple years ago for similar problem but it went away within a day. He is also not aware of any history of hydrocephalus reported to them. Patient walks with a walker. Denies any headache. No visual symptoms. Objective - Vital Signs Vital signs: Vital Signs Temp 97.2 F L 05/15/20 07:00 Pulse 66 05/15/20 07:00 Resp 15 05/15/20 07:00 BP 136/64 05/15/20 07:00 Pulse Ox 95 05/15/20 07:00 Intake & Output 05/14/20 05/15/20 05/15/20 18:59 06:59 18:59 Intake Total 100 Balance 100 Weight 63.503 kg Intake: Oral 100 Other: Voiding Method Toilet Toilet # Voids 1 1 - Exam Patient's mental status, speech and language functions are normal. Hearing is decreased but hearing aid works well. Muscle strength is normal. Patient was able to get up, walked with her walker with slight stoop and slight shuffling gait. - Labs CBC & Chem 7: 05/14/20 08:46 05/14/20 08:46 Assessment and Plan Assessment: * Vertigo, likely due to peripheral vestibular dysfunction, possible labyrinthitis. Patient does have chronic hearing loss and uses hearing aids. Computed tomography scan of the head showed evidence of near complete opacification of the left sphenoid sinus, probably suggesting acute sinusitis. Patient however denies any sinus congestion. This sphenoid sinus polyp was present in the previous MRI and computed tomography scan as well from 2019, but now seems to have gotten worse on the current imaging. * Hydrocephalus noted on computed tomography scan, probably chronic. Patient has similar appearance of possible NPH as per MRI from 08/15/2018. Patient is not aware of any previous discussion about NPH in the past. Patient denies any significant problem with balance or memory problems. She does have mild urinary incontinence. I informed patient of typical symptoms of NPH, and if those symptoms start appearing, then she should follow-up with the neurosurgeon to consider for VPS. Plan: * Continue meclizine. Consider course of antibiotics for acute on chronic left sphenoid sinusitis. May consider ENT consult. * B12 509, folate level >24. * Patient's dizziness is much improved. * Discussed with patient's son about possible signs of NPH, if she develops any, then may follow-up with a neurologist. * Neurologically clear.
--- NOTE | 2020-05-16 07:11 | P.DS ---
Providers Date of admission: 05/14/20 12:06 Attending physician: Mj Brumfield Consults: 05/14/20 12:06 Consult Physician Urgent Consulting Provider: Les Sanchez Consult Reason/Comments: VERTIGO Do you want consulting provider notified?: Yes Primary care physician: Renaldo Paul [facility] Course: Diagnoses: -Vertigo, likely due to peripheral vestibular dysfunction, possible labyrinthitis. Patient does have chronic hearing loss and uses hearing aids. Significantly improved upon discharge and patient was cleared for discharge by neurologist with ENT as an outpatient is recommended -Primary osteoarthritis -Hyperlipidemia -Glaucoma -Essential hypertension, new diagnosis. Start the patient on lisinopril hydrochlorothiazide 10/12.5 daily at bedtime Hospital course: This is a very pleasant 84-year-old patient who follows with Dr. Garner. Patient's chronic stable medical conditions include hyperlipidemia, glaucoma, osteoporosis and ostial arthritis. His morning she got out of bed and while doing that she room started spinning severely. She had to hold onto things. She remains very dizzy since then. It is very positional only when she moves not otherwise. Denies any headache. No change in speech no focal weakness. Patient is hard of hearing and is very hearing aids. Patient is given Antivert and next day she significantly improved. Neurologist evaluated the patient and suspected peripheral vestibular dysfunction and possible labyrinthitis and recommended ENT as an outpatient, patient informed and she agrees to follow up with Dr. Moya from ENT and she agrees with the appointments and 06/05 as stated she will follow-up On the day of discharge patient denies any other symptoms and she also he got to be discharged today. At Bedside. She Denies Chest Pain or Dyspnea. No Abdominal Pain or Change in Urine or Bowel Habits. No Fever. No Headache or Weakness or Numbness or Perfusion. Patient Was Cleared for Discharge by Neurologist Problems and management plan were discussed with the patient and he verbalized understanding and acceptance Patient was found stable and can be discharged home however he needs follow-up as an outpatient. Patient was instructed to follow up with PCP Dr. Garner within one week and patient agrees, ENT follow-up as above Gen: patient is a AAOx3, no distress CVS: S1-S2, RRR, no murmur Lungs: B/L CTA, no wheezing Abdomen: soft, no distention, no tenderness, positive bowel sounds Extremity: no leg edema or induration Time spent more than 35 minutes Plan - Discharge Summary Discharge Rx Participant: No New Discharge Prescriptions: New Lisinopril-Hctz 10-12.5 mg [Zestoretic 10-12.5] 1 each PO HS #30 tab Meclizine [Antivert] 25 mg PO TID PRN #20 tab PRN Reason: Vertigo Continue Dorzolamide-Timol 2.23%/0.68% [Cosopt] 1 drop BOTH EYES BID Discharge Medication List Dorzolamide-Timol 2.23%/0.68% [Cosopt] 1 drop BOTH EYES BID 05/14/20 [History] Lisinopril-Hctz 10-12.5 mg [Zestoretic 10-12.5] 1 each PO HS #30 tab 05/15/20 [Rx] Meclizine [Antivert] 25 mg PO TID PRN #20 tab 05/15/20 [Rx] Follow up Appointment(s)/Referral(s): Renaldo Isabel MD [Primary Care Provider] - 1 Week (We recommend to check blood test with your doctor including basic metabolic panel within one week) Khoa Moya MD [STAFF PHYSICIAN] - 06/05/20 10:15 am (Follow up with Dr. Moya for vertigo and sphenoid sinus polyp on cat scan. ) Patient Instructions/Handouts: Vertigo (GEN) Activity/Diet/Wound Care/Special Instructions: Heart healthy diet Activity is restricted till you see your doctor Discharge Disposition: HOME WITH HOME HEALTH SERVICES
== END 2020-05-15 12:50 | disposition home health service (06) ==
LOC: EC 08:15 → 6NMEDSUR 12:06
PROVIDERS: ADMIT Hospitalist; ATTEND Hospitalist
DX: R42 Dizziness and giddiness (principal); I10 Essential (primary) hypertension; G91.9 Hydrocephalus, unspecified; H40.9 Unspecified glaucoma; M81.0 Age-related osteoporosis without current pathological fracture; E78.5 Hyperlipidemia, unspecified; J32.3 Chronic sphenoidal sinusitis; J33.8 Other polyp of sinus; H91.90 Unspecified hearing loss, unspecified ear; R32 Unspecified urinary incontinence; M19.91 Primary osteoarthritis, unspecified site; Z20.822 Contact with and (suspected) exposure to COVID-19; Z79.899 Other long term (current) drug therapy; Z88.2 Allergy status to sulfonamides; Z87.891 Personal history of nicotine dependence; Z97.4 Presence of external hearing-aid; Z90.49 Acquired absence of other specified parts of digestive tract; Z82.5 Family history of asthma and other chronic lower respiratory diseases; Z80.49 Family history of malignant neoplasm of other genital organs; Z80.9 Family history of malignant neoplasm, unspecified
CPT/HCPCS: 96372; 96374; 96375; 99285; 36415; 93005; 97162; 97166; 80053; 82607; 82746; 83735; 84484; 85025; 85610; 85730; 87635; 70450; G0378 ×2; J3360; J2405; J1650